=== PATIENT | male | born 1955 | race Caucasian/White ===

== ENCOUNTER 2020-10-02 06:36 | Outpatient (CLI) | payer OTHER ==
[2020-10-02 13:32] LABS: #Basophils 0.1 10x3/uL (0.0-0.2); #Eosinphils 0.4 10x3/uL (0.0-0.5); #Monocytes 0.6 10x3/uL (0.0-1.1); #Neutrophils 3.4 10x3/uL (1.5-8.4); %Basophils 1.2 % (0.0-2.0); %Eosinophils 5.5 % (0.0-6.0); %Lymphocytes 32.6 % (18.0-47.0); %Neutrophils 51.4 % (40.0-75.0); Hemoglobin 15.7 g/dL (14.0-18.0); Mean Corpuscular HGB CONC 33.1 G/DL (32.0-36.0); Mean Corpuscular Hemoglobin 28.8 PG (27.0-33.0); Mean Platelet Volume 9.9 fl (7.4-10.4); Platelet Count 258 10x3/uL (130-400); RBC Distribution Width 13.2 % (11.5-14.5); Red Blood Cell (RBC) Count 5.46 10x6/uL (4.40-5.80); White Blood Cell (WBC) Count 6.7 10x3/uL (4.5-11.0)
[2020-10-02 14:02] LABS: Anion Gap 13 mmol/L (10-20); BUN (Urea Nitrogen) 12 mg/dL (8.4-25.7); Calc. Creatinine Clearance 0 mL/min (70-130); Calcium 9.2 mg/dL (7.8-10.44); Carbon Dioxide 25 mmol/L (23-31); Chloride 104 mmol/L (98-107); Glucose 81 mg/dL (80-115); Potassium 4.3 mmol/L (3.5-5.1); Sodium 138 mmol/L (136-145)
[2020-10-02 21:56] LABS: SARS-CoV-2 MS2 Positive; SARS-CoV-2 N Gene Negative; SARS-CoV-2 S Gene Negative; SARS-CoV-2 by NAA Not Detected (NotDetected); SARS-CoV-2 orf1ab Negative
== END 2020-10-02 06:37 | disposition home or self-care (01) ==
LOC: LABBT 06:36
PROVIDERS: ATTEND Specialist
DX: Z01.818 Encounter for other preprocedural examination (principal); K40.20 Bilateral inguinal hernia, without obstruction or gangrene, not specified as recurrent; Z20.828 Contact with and (suspected) exposure to other viral communicable diseases
CPT/HCPCS: 80048; 85025; 87635; 93005; 93010; U0003

== ENCOUNTER 2020-10-05 06:25 | Day surgery (SDC) | payer OTHER ==
[2020-10-04 11:48] VITALS: BMI 29.5
--- NOTE | 2020-10-04 12:52 | HP ---
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 Plan is robot mesh repair of bilateral inguinal hernias. He had a cardiac stress test in September 2019 that was normal. He understands risks of surgery, infection, bleeding, reoperation, recurrence of hernia, and consents. We will plan this after Thanksgiving. SOCIAL HISTORY: Tobacco, none. Alcohol, socially. MEDICATIONS: 1. Vitamins. 2. Aspirin 81 mg a day. 3. CoQ10 daily. 4. Lisinopril 10 mg a day. 5. Lipitor 40 mg a day. 6. Metoprolol 25 mg q.24 hours. 7. Omeprazole 20 mg a day. PAST MEDICAL HISTORY: Stroke with some expressive aphasia, no physical weakness, eczema and some mild GERD. PAST SURGICAL HISTORY: Left carotid endarterectomy in May 2015, at the time of his stroke, elbow surgery in 2014, shoulder surgery rotator cuff in 2016 on the right, colonoscopy in 2005. REVIEW OF SYSTEMS: Noncontributory. FAMILY HISTORY: Noncontributory. PHYSICAL EXAMINATION: VITAL SIGNS: Weight 186 pounds, height 67 inches, 29 BMI. Blood pressure 140/73, pulse 56, temperature 97.3 degrees. HEAD, EARS, EYES, NOSE AND THROAT: Unremarkable. LUNGS: Clear to auscultation. CARDIAC: Regular rate and rhythm without murmur or gallop. ABDOMEN: Soft, nontender. EXTREMITIES: Unremarkable. The testicles are normal. Right groin reveals a small hernia on Valsalva. Left groin on standing noticed a bulge, enlarges on Valsalva. ASSESSMENT AND PLAN: Bilateral inguinal hernias. Plan robot mesh repair outpatient. He understands risks and benefits and consents. Job ID: [id number]
[2020-10-05] MEDS ORDERED: Ketorolac Tromethamine 30 MG/ML VIAL ONE (06:35)
[2020-10-05] MEDS ORDERED: Acetaminophen 500 MG TAB ONE (06:36)
[2020-10-05] MEDS ORDERED: Gabapentin 300 MG CAP ONE (06:36)
[2020-10-05] MEDS ORDERED: Lidocaine 1% w/Epinephrine 1:100K 20 ML VIAL ONE (06:44)
[2020-10-05] MEDS ORDERED: Bupivacaine PF 0.5% 30 ML VIAL ONE (06:44)
[2020-10-05] MEDS ORDERED: Fentanyl 100 MCG/2 ML VIAL ONE ×3 (07:32→10:57)
[2020-10-05] MEDS ORDERED: Levofloxacin 500 mg/D5W 100 ml Premix Bag ONE (08:53)
[2020-10-05] MEDS ORDERED: Ondansetron PF 4 MG/2 ML Vial ONE (10:42)
[2020-10-05] MEDS ORDERED: Rocuronium Bromide 10 MG/ML (10ML VIAL) ONE (10:42)
[2020-10-05] MEDS ORDERED: Glycopyrrolate 0.2 MG/ML 5 ML SYRINGE ONE (10:42)
[2020-10-05] MEDS ORDERED: Dexamethasone 20 MG/5 ML VIAL ONE (10:42)
[2020-10-05] MEDS ORDERED: Lidocaine 1% PF 5 ML VIAL ONE (10:42)
[2020-10-05] MEDS ORDERED: PROPOFOL 200 MG/20 ML VIAL ONE (10:42)
[2020-10-05] MEDS ORDERED: PHENYLEPHRINE-NS 100 MCG/ML 10 ML SYRINGE ONE (10:42)
--- NOTE | 2020-10-05 10:52 | OP ---
DATE OF PROCEDURE: 10/05/2020 SERVICE: Urology. CONSULTING: Dr. Ba Cuevas. REASON FOR INTRAOPERATIVE CONSULTATION: Inability to place catheter. POSTPROCEDURE DIAGNOSIS: Urethral stricture disease. BRIEF HISTORY AND INDICATION FOR SURGERY: Mr. Silva is a 64-year-old white male who is currently undergoing a robotic inguinal hernia repair with Dr. Cuevas. Urinary symptoms are not known as this was not generally discussed or documented previously. The patient did have a symptomatic hernia and had elected for repair. At the time of his surgery, the patient was put to sleep and attempts by both nursing staff and surgeon were attempted to place a catheter without success. I was then consulted for assistance with placement of urethral Nieto catheter. DESCRIPTION OF PROCEDURE: After identification of armband and verification of patient identity, a rigid cystoscope was brought into the room. The patient was placed in the dorsal lithotomy position and prepped and draped in usual sterile fashion. A time-out was performed and then a 22-Czech rigid cystoscope was introduced per urethra up to the level of the bulbar urethra, where it was noted the patient had a fairly narrow, but short bulbar urethral stricture. Visualization beyond this was not possible. An Amplatz Super Stiff wire was able to be navigated through the lumen of the stricture into the bladder. Redundancy was placed into the bladder to ensure that this would not come out during dilation. The cystoscope was then removed leaving the Super Stiff wire in place. Using Christiano sounds, starting at 12-Czech, dilations were performed serially up to 20-Czech. Once the stricture had been adequately dilated, a 16-Czech [place] tip catheter was placed over the Super Stiff wire into the bladder and the Super Stiff wire was then removed. 10 mL of sterile water was placed into the balloon and hooked up to gravity drainage. This was then left off to gravity drainage and the patient was left asleep to begin the robotic hernia repair with Dr. Cuevas. For my portion of procedure: COMPLICATIONS: None. ESTIMATED BLOOD LOSS: Minimal. RETAINED TUBES AND DRAINS: 16-Czech [place] tip catheter. SPECIMENS: None. DISPOSITION: The patient will be cared for by Dr. Cuevas postoperatively. The patient is planned to be in ambulatory surgery and should go home. I recommended the patient go home with his Nieto catheter for 7 days and then follow up with me afterwards for a voiding trial in the office. There is a high probability his stricture will recur, given that he just had serial dilations and we can discuss long-term plans with him in the future. Levofloxacin 500 mg IV was given to the patient intraoperatively for prophylaxis. Job ID: [id number]
--- NOTE | 2020-10-05 11:28 | OP ---
DATE OF PROCEDURE: 10/05/2020 PREOPERATIVE DIAGNOSIS: Bilateral inguinal hernias. POSTOPERATIVE DIAGNOSES: Bilateral inguinal hernias and urethral stricture. PROCEDURES PERFORMED: Intraoperative consultation with Dr. Guicho Vallejo, who placed a Nieto with cystoscope. Note, Nieto left in place and will follow up with Dr. Vallejo in one week. Robot bilateral inguinal hernia repair with mesh laparoscopic. ANESTHESIA: General anesthesia, local with 0.5% Marcaine 30 mL mixed with 1% Xylocaine with epinephrine [address] Vallejo will dictate the cystoscopic placement of a Ineto. DESCRIPTION OF PROCEDURE: The patient was taken to the operating room, where under general anesthesia, abdomen was clipped of hair, prepared with ChloraPrep, and draped in routine fashion. After Nieto catheter attempts were unsuccessful, Dr. Vallejo consulted to place a Nieto catheter, requiring cystoscope revealing a very tight urethral stricture. Nieto left in place at the end of the procedure. Supraumbilical left of midline incision was made, pneumoperitoneum to 15 mmHg was obtained with a Veress needle, replaced with an 11 mm balloon port and the laparoscope inserted and bilateral lateral abdominal incision was made superior to the umbilical level and 8 mm port was placed. Robot was docked after the patient positioned and robot hernia repair undertaken. Bilateral peritoneal flaps created from the anterior superior iliac spine to the midline using the hot cautery, dissecting the flaps, revealing the retroperitoneal space exposing the Alexy's ligament medially on both sides and dissected in the retroperitoneal near the anterior superior iliac spine bilaterally. There was a large inguinal hernia on the left. Peritoneal flap dissected free exposing the cord structures, dissecting all free, unroofing them for least 8 cm. Both meshes were placed in the retroperitoneum, securing the mesh to Alexy ligament with interrupted sutures of 2-0 Vicryl, anterior abdominal wall to the right and to the left of the inferior epigastric vessels respectively on the right and left with 2-0 Vicryl. Once this was secured, good hernia repair appreciated. Good hemostasis noted. Peritoneal flap was closed with continuous suture of 3-0 STRATAFIX. Good hemostasis noted. [place] and sutures retrieved. Pneumoperitoneum reduced. All skin incisions were approximated with interrupted subdermal 4-0 Monocryl after robot trocar sites removed. The patient tolerated the procedure well. Job ID: [id number]
[2020-10-05] MEDS ORDERED: Promethazine HCl 25 MG/ML VIAL ONE (11:29)
[2020-10-05] MEDS ORDERED: HYDROcodone/Acetaminophen 5/325 mg Tablet ONE (14:38)
== END 2020-10-05 15:05 | disposition home or self-care (01) ==
LOC: SDC 06:25
PROVIDERS: ATTEND Specialist
PROC: 0YUA4JZ Supplement Bilateral Inguinal Region with Synthetic Substitute, Percutaneous Endoscopic Approach (ICD-10-PCS; principal; 2020-10-05)
DX: K40.20 Bilateral inguinal hernia, without obstruction or gangrene, not specified as recurrent (principal); N35.919 Unspecified urethral stricture, male, unspecified site; I10 Essential (primary) hypertension; I25.10 Atherosclerotic heart disease of native coronary artery without angina pectoris; E78.00 Pure hypercholesterolemia, unspecified; E78.5 Hyperlipidemia, unspecified; K21.9 Gastro-esophageal reflux disease without esophagitis; F17.200 Nicotine dependence, unspecified, uncomplicated; Z79.82 Long term (current) use of aspirin; Z79.899 Other long term (current) drug therapy; Z88.2 Allergy status to sulfonamides
CPT/HCPCS: C1781; J0690; J1100; J1885; J1956; J2405; J2550; J2704; J3010; S0020